=== PATIENT | female | born 1965 | race Caucasian/White ===

== ENCOUNTER → 2020-02-04 11:35 | Outpatient (CLI) | payer BC, SELFPAY | PROVIDERS: PCP Family Medicine; Visit Provider Family Medicine | DX: Z03.818 Encounter for observation for suspected exposure to other biological agents ruled out (principal) | CPT/HCPCS: U0003 ==

== ENCOUNTER → 2020-04-20 11:12 | Outpatient (CLI) | payer BC, SELFPAY ==
[2020-04-20 13:43] LABS: Vitamin B12 692 pg/mL (239-931)
[2020-04-20 16:34] LABS: Erythrocyte Sedimentation Rate 26 mm/hr (0-30)
== END ==
PROVIDERS: Visit Provider Specialist
DX: G44.51 Hemicrania continua (principal); G47.33 Obstructive sleep apnea (adult) (pediatric); Z68.33 Body mass index [BMI] 33.0-33.9, adult; R51.9 Headache, unspecified
CPT/HCPCS: 36415; 82607; 85651

== ENCOUNTER → 2020-04-22 13:30 | Outpatient (CLI) | payer BC, SELFPAY ==
--- NOTE | 2020-04-22 13:30 | MR_ITS ---
PROCEDURE: MR HEAD/BRAIN WO CON CLINICAL INDICATION: eval for ANIMAL WARDEN abnormality Worsening headache COMPARISON: No exams were available for comparison TECHNIQUE: Routine multiplanar multi echo sequences are performed without gadolinium enhancement. FINDINGS: No midline shift, mass effect, intracranial hemorrhage, or hydrocephalus evident. No evidence of acute infarction. There are scattered small T2 white matter hyperintensities in the frontal and parietal lobes. The pituitary, corpus callosum, and craniocervical junction are unremarkable. The jenna midbrain and brainstem are unremarkable. Cerebellopontine angle and cerebellum have an unremarkable appearance. No mastoid effusion or sinus air-fluid level. IMPRESSION: Scattered small T2 white matter hyperintensities in the frontal and parietal lobes. These are nonspecific. This may represent sequela from ischemic gliotic change and microvascular disease or migraine headache. Demyelinating process included in the differential diagnosis but felt to be less likely based on imaging characteristics. Correlation with clinical parameters needed.. Dictated by: Jonathan Gomez MD 04/23/2020 09:29 Jonathan Gomez MD in [place] 04/23/2020 09:29
== END ==
PROVIDERS: PCP Family Medicine; Visit Provider Specialist
DX: G44.51 Hemicrania continua (principal); G47.33 Obstructive sleep apnea (adult) (pediatric); Z68.33 Body mass index [BMI] 33.0-33.9, adult
CPT/HCPCS: 70551

== ENCOUNTER → 2020-06-16 09:29 | Outpatient (CLI) | payer BC, SELFPAY ==
[2020-06-16 10:36] LABS: Chloride 105 mmol/L (98-107); Sodium 141 mmol/L (136-145)
[2020-06-16 10:37] LABS: Potassium 4.6 mmoL/L (3.5-5.1)
[2020-06-16 10:39] LABS: Alanine Aminotransferase 31 U/L (12-78); Albumin Level 4.6 g/dl (3.5-5.0); Alkaline Phosphatase 72 U/L (38-126); Anion Gap 12.6 mEq/L (5-15); Aspartate Amino Transferase 33 U/L (14-36); Bilirubin,Indirect 0.6 mg/dL (0.0-0.9); Bilirubin,Total 0.6 mg/dl (0.2-1.3); Bilirubin,Unconjugated 0.6 mg/dL (0.0-1.1); Blood Urea Nitrogen 12 mg/dl (7-17); Calcium 10.3 mg/dl (8.4-10.2); Carbon Dioxide 28 mmol/L (22.0-30.0); Chol/HDL Ratio 2.8 (1-3.5); Cholesterol 139 mg/dl (140-200); Estimated Glomerular Filt Rate 87 ml/min (>60); GFR (African American) 105 ML/MIN (>60); Glucose 120 mg/dl (74-100); HDL Cholesterol 49 mg/dl (40-60); Triglycerides 71 mg/dl (30-150); VLDL Cholesterol 14 mg/dL (0-40)
[2020-06-16 10:51] LABS: Direct LDL Cholesterol 65.25 mg/dL (100-129)
[2020-06-16 10:52] LABS: Basophils % 0.5 % (0.1-2.0); Eosinophils # 0.4 K/mm3 (0.0-0.4); Eosinophils % 8.1 % (0.1-12.0); Hematocrit 41.4 % (37.0-47.0); Hemoglobin 13.2 g/dL (12.2-16.2); Lymphocytes # 1.3 K/mm3 (0.7-4.5); Lymphocytes % 26.8 % (10-50); Mean Corpuscular Hemoglobin 30.4 pg (27.0-31.2); Mean Corpuscular Volume 95.2 fl (81-99); Mean Platelet Volume 8.7 fl (7.4-10.4); Monocytes # 0.3 K/mm3 (0.1-1.0); Monocytes % 6.2 % (1.7-9.3); Neutrophils # 2.9 K/mm3 (1.8-7.8); Neutrophils % 58.4 % (37.0-80.0); Platelet Count 245 K/mm3 (142-424); Red Blood Count 4.35 M/mm3 (4.20-5.40); Red Cell Distribution Width 13.1 % (11.5-17.5)
[2020-06-16 10:55] LABS: Free T4 (Free Thyroxine) 1.02 ng/dl (0.78-2.19)
[2020-06-16 11:10] LABS: Thyroid Stimulating Hormone 0.36 uIU/mL (0.465-4.68)
== END ==
PROVIDERS: Visit Provider Nurse Practitioner Family
DX: I11.9 Hypertensive heart disease without heart failure (principal); E11.9 Type 2 diabetes mellitus without complications; G47.33 Obstructive sleep apnea (adult) (pediatric); Z79.899 Other long term (current) drug therapy
CPT/HCPCS: 36415; 80048; 80061; 80076; 84439; 84443; 85025

== ENCOUNTER → 2020-06-29 10:04 | Outpatient (CLI) | payer BC, SELFPAY ==
--- NOTE | 2020-06-29 10:06 | CA_ITS ---
APPROVED REPORT EXAM: Comprehensive 2D, Doppler, and color-flow Echocardiogram [employer] Mechanic: Jenny Benites, MAI, RVS Ht: 5 ft 9 in Wt: 229lbs BSA: 2.19 BP: 154/73 mmHg Indications: SOB, HTN, GIFTY, HEADACHES 2D Dimensions LVOT 2.04 cm (M/F) 1.5-2.5 M-Mode Dimensions RVDd 2.91 cm (0.9-2.6) LA Diam 3.68 cm (1.9-4.0) LVDd 5.20 cm (3.5-5.7) Ao Diam 3.16 cm (2.0-3.7) LVDs 3.05 cm (3.5-5.7) IVSd 0.79 cm (0.6-1.1) PWd 0.86 cm (0.6-1.1) EF (Teich) 71.90% EPSs 0.47 cm FS 41.30% EDV (Teich) 129.50 mL TAPSE 3.05 (<1.7) ESV (Teich) 36.40 mL LV Diastology E Decel Time 210.00 (160-240 msec) E/A Ratio 1.34 MED E' 10.80 (< 7 cm/sec) MED A' 9.10 cm/s E'/MED E' Ratio 8.11 (>14) LAT E' 9.70 (<10 cm/sec) LAT A' 13.30 cm/s E/LAT E' Ratio 9.03 (>14) Aortic Valve LVOT Max 109.00 (70-110 cm/s) LVOT VTI 23.19 cm AoV Peak Evaristo. 161.00 (50-130 cm/s) AO Peak GR. 10.30 mmHg AO Mean GR. 5.10 (<5 mmHg) AO VTI 30.76 (18-25 cm) GURPREET (VTI) 2.46 (2.5-4.5 cm2) Mitral Valve MV E Max Evaristo. 88.00 (40-130 cm/s) MV A Velocity 66.00 (40-130 cm/s) E/A Ratio 1.34 MV Decel. Time 210.00 (160-240 ms) MV PHT 62.00 ms Pulmonary Valve PV Peak Velocity 101.00 (50-150 cm/s) Tricuspid Valve TR P. Velocity 237.00 cm/s RAP Estimate 10.00 mmHg RVSP 32.40 mmHg Left Ventricle Left atrium is mildly enlarged, left ventricle is normal size, there is no concentric left ventricular hypertrophy, visually estimated ejection fraction 55% with no regional wall motion abnormality, diastolic parameters are within normal range. Right Ventricle Right atrium and right ventricle are relatively normal size and function. Aortic Valve Aortic valve is minimally thickened and fibrosed, there is no aortic stenosis or aortic insufficiency. Mitral Valve Mitral valve grossly normal, there is trace mitral regurgitation. Tricuspid Valve Tricuspid grossly normal, there is trace tricuspid regurgitation. Tricuspid regurgitation jet velocity is inadequate for calculation of the right ventricular systolic pressure. Pulmonic Valve Pulmonic valve is poorly visualized. Great Vessels Aortic root is normal size. Pericardium No significant pericardial effusion noted. Conclusion 1. Mildly low left atrium, normal left ventricular size, visually estimated ejection fraction 55% with no regional wall motion abnormality, diastolic parameters are within normal range. 2. Trace mitral and tricuspid regurgitation. 3. No significant pericardial effusion noted. Electronically signed by : Lenin Cuevas, 06/29/2020 21:17:57
== END ==
PROVIDERS: PCP Family Medicine; Visit Provider Nurse Practitioner Family
DX: R06.00 Dyspnea, unspecified (principal); I10 Essential (primary) hypertension; R51.9 Headache, unspecified; G47.33 Obstructive sleep apnea (adult) (pediatric)
CPT/HCPCS: 93306

== ENCOUNTER → 2020-08-04 09:55 | Outpatient (CLI) | payer BC, SELFPAY ==
--- NOTE | 2020-08-04 09:55 | US_ITS ---
PROCEDURE: US THYROID CLINICAL INDICATION: hyperthyroidism COMPARISON: No exams were available for comparison FINDINGS: Right lobe: 5.5 x 2.1 x 1.9 cm. 5 x 3 mm hypoechoic nodule upper pole well-circumscribed. 8 x 4 mm isoechoic nodule upper pole somewhat ill-defined. 4 mm slightly hypoechoic nodule mid polar region not well circumscribed. 3 x 2 cm mixed cystic and solid nodule in the lower pole. This nodule is wider than tall and well-circumscribed and TR level 2. No calcifications Left lobe: 2.9 x 1.2 x 0.8 cm. No nodules apparent Isthmus: Unremarkable Additional findings: IMPRESSION: Enlarged right lobe of the thyroid gland with at least 4 nodules the largest in the lower pole mixed cystic and solid probably benign. Consider 12 month follow-up Dictated by: Jonathan Gomez MD 08/04/2020 15:44 Jonathan Gomez MD in [place] 08/04/2020 15:44
== END ==
PROVIDERS: PCP Family Medicine; Visit Provider Physician Assistant
DX: E05.90 Thyrotoxicosis, unspecified without thyrotoxic crisis or storm (principal)
CPT/HCPCS: 76536

== ENCOUNTER → 2021-09-08 10:04 | Outpatient (CLI) | payer BC, SELFPAY ==
--- NOTE | 2021-09-08 10:12 | US_ITS ---
FINAL REPORT CLINICAL HISTORY: THYROID GOITER COMPARISON: August 04, 2020 FINDINGS: THYROID ULTRASOUND Sonographic images of the thyroid was obtained. The right lobe of the thyroid measures 5.6 x 2.6 x 2.2 cm. There is a dominant heterogeneous TI-RADS 3 mass in the lower pole on the right measuring 32 x 20 x 28 mm. It is solid and cystic, mostly isoechoic, and stable in size. There is a nodule in the upper pole measuring 6 x 5 x 5 mm, solid and isoechoic, TI-RADS 3. A nodule in the mid right lobe measures 6 x 6 x 5 mm, solid and isoechoic, TI-RADS 3. The left lobe of the thyroid measures 2.5 x 0.9 x 0.6 cm. The isthmus measures 2 mm. IMPRESSION: Dominant heterogeneous TI-RADS 3 mass on the right as detailed above. Recommend additional follow-up in 12 months. Small right lobe TI-RADS 3 nodules as above. Reviewed, Interpreted and Dictated by Willian Porter III, MD Transcribed by Irina Wilson Authenticated and [facility]
== END ==
PROVIDERS: PCP Family Medicine; Visit Provider Otolaryngology
DX: E04.9 Nontoxic goiter, unspecified (principal)
CPT/HCPCS: 76536